=== PATIENT | female | born 1980 | race Caucasian/White ===

== ENCOUNTER → 2016-09-17 | Outpatient (CLI) | payer OTHER ==
[~2016-09-17] MED LIST: AMT25 PO; MCRB100HP PO; NAPR220T40 PO; NORE1TAB50 PO; RIZA10TA21 PO
== END | disposition home or self-care (01) ==
LOC: C.PAPS 10:27
PROVIDERS: ATTEND Obstetrics & Gynecology
DX: Z12.4 Encounter for screening for malignant neoplasm of cervix (principal)

== ENCOUNTER → 2017-10-14 | Outpatient (CLI) | payer OTHER ==
--- NOTE | 2017-10-15 07:49 | MAMMOGRAPHY REPORT ---
BILATERAL DIGITAL DIAGNOSTIC MAMMOGRAM TOMOSYNTHESIS WITH CAD AND TARGETED RIGHT ULTRASOUND: 8 CLINICAL HISTORY: The patient reports a palpable lump and associated pain in the right breast for a f ew months. The lump has not noticeably changed in size since she first felt it. TECHNIQUE: Breast tomosynthesis in addition to standard 2D mammography was performed. Current study was also evaluated with a Computer Aided Detection (CAD) system. Bilateral CC and MLO 2D and tomosyn thesis images were obtained. COMPARISON: Comparison is made to exams dated: 02/14/2010 mammogram and 06/17/2005 mammogram. BREAST COMPOSITION: The tissue of both breasts is extremely dense, which lowers the sensitivity of m ammography. FINDINGS: A triangle marker was placed at the site of the palpable lump in the right lower inner quad rant pointed out by the patient. There are no suspicious masses or other suspicious mammographic abn ormalities noted in this region. The remainder of both breasts are stable compared to the prior exam s, without suspicious masses, calcifications, or areas of architectural distortion noted. Targeted ultrasound was performed of the area of the palpable lump and associated pain pointed out by the patient, in the right breast at approximately 5:00, 3 cm from the nipple. Sonographically luis l tissue is seen in this region, without evidence of a mass or other suspicious sonographic abnormali ty. IMPRESSION: ACR BI-RADS CATEGORY 2: BENIGN, TARGETED ULTRASOUND ACR BI-RADS CATEGORY 2: BENIGN No suspicious mammographic or sonographic abnormality at the site of the palpable right 5:00 breast l ump pointed out by the patient. There is no mammographic or targeted sonographic evidence of maligna ncy. Recommend clinical follow-up for the palpable right breast lump; any decision to biopsy should be based on clinical grounds. Also recommend routine bilateral screening mammograms in one year. The patient has been verbally notified of the results. Approximately 10% of breast cancers are not detected with mammography. A negative mammographic report should not delay biopsy if a clinically suggestive mass is present. Stefany Chavez M.D. /:10/14/2017 11:52:27 Supervisor Transcribing Operators: Shreya FORBES)(Dhiraj), [facility] letter sent: Normal 1/2 BI-RADS Code: ACR BI-RADS Category 2: Benign Ultrasound BI-RADS: ACR BI-RADS Category 2: Benign
== END | disposition home or self-care (01) ==
LOC: C.MAMM 11:18
PROVIDERS: ATTEND Obstetrics & Gynecology
DX: N63.10 Unspecified lump in the right breast, unspecified quadrant (principal)

== ENCOUNTER 2019-11-10 20:55 | Inpatient (IN) ==
[2019-11-10] MEDS ORDERED: ONDANSETRON INJ 2 MG/ML 2 ML VIAL IV STA (21:59)
[2019-11-10] MEDS ORDERED: MoRPHine SULFATE 4 MG/ML 1 ML CARP\\VIAL IV STA (21:59)
--- NOTE | 2019-11-10 22:08 | Emergency Department Note ---
History of Present Illness General Chief complaint: Abdominal Pain Stated complaint: EXTREME ABD AND SIDE PAIN Time Seen by Provider: 11/10/19 21:44 History of Present Illness Maximum Pain Intensity: 10 This is a 39-year-old female presenting to the emergency department for evaluation of left-sided abdominal pain and diarrhea worsening over the past 2 days. She has had intermittent symptoms for the past 2 weeks and evidently had normal outpatient ultrasound of the gallbladder and blood work performed within the past 2 days. She is having intermittent small diarrheal episodes at home, and denies any recent antibiotic use. Her pain initially was diffuse, but now seems more in the left side. She has not had any medication changes. No recent travel. Past medical history does include liver cysts that have been biopsied, and reportedly normal. She has not had any other abdominal procedures. She has been able to eat and drink as normal. She rates her current discomfort a 10/10 and has not taken anything [id number] for pain control. Home Medications Home Medications Medication Instructions Recorded Confirmed Type escitalopram oxalate 10 mg PO DAILY 11/10/19 11/10/19 History famotidine 40 mg PO HS 11/10/19 11/10/19 History fremanezumab-vfrm [Ajovy Syringe] 225 mg SUBCUT MO 11/10/19 11/10/19 History rizatriptan 10 mg PO DIRECTED PRN 11/10/19 11/10/19 History topiramate [Trokendi XR] 50 mg PO DAILY 11/10/19 11/10/19 History valacyclovir 2,000 mg PO Q12H PRN 11/10/19 11/10/19 History Allergies Allergy/AdvReac Type Severity Reaction Status Date / Time azithromycin Allergy Intermediate Rash Verified 11/10/19 22:19 prednisone Allergy Intermediate Rash Verified 11/10/19 22:19 Past Med/Surg History Medical History Horners syndrome (Chronic) Liver cyst Surgical History S/P breast biopsy S/P tooth extraction Social History Preferred Language: [employer] Required: No Current Living Situation: Alone Other Information That Helps Us Care for You: No Feels Safe at Home: Yes Safety Concerns: Feels Safe At This Time Smoking Status: Never smoker Hx Alcohol Use: Yes Hx Substance Use: No Review of Systems A total of 10 systems reviewed and were otherwise negative Physical Exam Vital Signs Vital Signs - 24 hr 11/10/19 20:58 11/10/19 21:43 11/10/19 22:00 Temperature 36.7 C Temperature Source Oral Pulse Rate 91 H 83 Pulse Rate [Apical] 80 Pulse Rate from SpO2 Sensor Respiratory Rate 20 18 18 Respiratory Effort / Characteristics Non-Labored Spontaneous Respiratory Depth Normal Blood Pressure 125/80 108/74 Blood Pressure [Right Arm] 111/71 Blood Pressure Mean 95 87 Blood Pressure Mean [Right Arm] 84 Pulse Oximetry 99 99 Oxygen Delivery Method Room Air Room Air Sepsis Action Taken by Nursing No Action Required 11/10/19 22:06 11/10/19 22:30 11/10/19 23:30 Temperature Temperature Source Pulse Rate 76 62 Pulse Rate [Apical] Pulse Rate from SpO2 Sensor 77 67 Respiratory Rate 16 16 Respiratory Effort / Characteristics Respiratory Depth Blood Pressure 103/74 121/73 Blood Pressure [Right Arm] Blood Pressure Mean 86 82 Blood Pressure Mean [Right Arm] Pulse Oximetry 100 100 100 Oxygen Delivery Method Room Air Sepsis Action Taken by Nursing 11/11/19 00:00 11/11/19 01:00 11/11/19 01:30 Temperature Temperature Source Pulse Rate 66 70 76 Pulse Rate [Apical] Pulse Rate from SpO2 Sensor 64 70 76 Respiratory Rate 17 19 19 Respiratory Effort / Characteristics Respiratory Depth Blood Pressure 128/86 111/66 111/76 Blood Pressure [Right Arm] Blood Pressure Mean 89 79 91 Blood Pressure Mean [Right Arm] Pulse Oximetry 100 100 99 Oxygen Delivery Method Room Air Sepsis Action Taken by Nursing 11/11/19 02:00 11/11/19 02:30 Temperature Temperature Source Pulse Rate 70 72 Pulse Rate [Apical] Pulse Rate from SpO2 Sensor 70 73 Respiratory Rate 15 22 Respiratory Effort / Characteristics Respiratory Depth Blood Pressure 110/77 114/77 Blood Pressure [Right Arm] Blood Pressure Mean 85 84 Blood Pressure Mean [Right Arm] Pulse Oximetry 99 99 Oxygen Delivery Method Sepsis Action Taken by Nursing VITALS: Vitals are noted on the nurse's note and reviewed by myself. Vital signs stable. GENERAL: Well-developed, well-nourished, white female, who is in no acute distress and resting comfortably. Patient is cooperative with the examination. HEAD: Normocephalic atraumatic. MOUTH: Mucous membranes moist. Tonsils are not enlarged. Pharynx without erythema, blood, or exudate. Uvula midline. Airway patent. NECK: Supple without nuchal rigidity. No lymphadenopathy. No thyromegaly. Cervical spine is nontender. HEART: Regular rate and rhythm without murmurs gallops or rubs. LUNGS: Clear to auscultation bilaterally without wheezes, rales or rhonchi. No retractions or accessory muscle use. ABDOMEN: Positive normal bowel sounds x 4. Soft, nontender, without masses or organomegaly. No guarding or rebound tenderness. MUSCULOSKELETAL: No muscle atrophy, erythema, or edema noted. Full range of motion in all extremities. NEURO: Patient was alert and oriented to person place and time. CN II through XII grossly intact. SKIN: The skin was without rashes, erythema, edema, or bruising. Capillary refill less than 2 seconds. Course Administered Medications Potassium Chloride/Sodium Chloride (Normal Saline W/20 Meq Kcl) 20 meq in 1,000 mls @ 100 mls/hr IV .Q10H JESSY Stop: 12/11/19 03:59 Last Admin: 11/11/19 04:18 Dose: 100 mls/hr Documented by: [id number] Tramadol HCl (Ultram) 25 - 50 mg PO Q4H PRN PRN Reason: Pain Stop: 12/11/19 03:35 Last Admin: 11/11/19 03:52 Dose: 50 mg Documented by: [id number] Discontinued Medications Ceftriaxone Sodium (Rocephin) 1,000 mg in 50 mls @ 100 mls/hr IV NOW STA Stop: 11/11/19 01:48 Last Infusion: 11/11/19 02:14 Dose: 0 mls/hr Documented by: [id number] Admin: 11/11/19 01:32 Dose: 100 mls/hr Documented by: [id number] Sodium Chloride (Nss 1000ml) 1,000 mls @ 999 mls/hr IV .Q1H1M STA Stop: 11/11/19 03:25 Last Infusion: 11/11/19 03:35 Dose: 0 mls/hr Documented by: [id number] Admin: 11/11/19 02:29 Dose: 999 mls/hr Documented by: [id number] Ioversol (Optiray 320 100ml) 93 ml IV ONCE PRN PRN Reason: Interaction Checking Stop: 11/15/19 00:22 Last Admin: 11/11/19 00:24 Dose: 93 ml Documented by: [id number] Morphine Sulfate (Morphine Sulfate) 4 mg IV NOW STA Stop: 11/10/19 22:00 Last Admin: 11/10/19 23:07 Dose: 4 mg Documented by: [id number] Morphine Sulfate (Morphine Sulfate) 4 mg IV NOW STA Stop: 11/11/19 00:53 Last Admin: 11/11/19 01:02 Dose: 4 mg Documented by: [id number] Ondansetron HCl (Zofran) 4 mg IV NOW STA Stop: 11/10/19 22:00 Last Admin: 11/10/19 23:07 Dose: 4 mg Documented by: [id number] Tamsulosin HCl (Flomax) 0.4 mg PO NOW STA Stop: 11/11/19 02:06 Last Admin: 11/11/19 02:14 Dose: 0.4 mg Documented by: [id number] Medical Decision Making Differential Diagnosis Differential diagnosis: Etiologies such as biliary colic, cholecystitis, hepatitis, pancreatitis, cardiac disease, pancreatitis, gastritis, peptic ulcer disease, appendicitis, cystitis, diverticulitis, mesenteric ischemia, inflammatory bowel disease, ileus, bowel obstruction, testicular/adnexal torsion, aortic pathology, shingles, as well as others were considered Laboratory Data Result diagrams: 11/10/19 21:50 11/10/19 21:50 Lab Results 11/10/19 11/10/19 11/10/19 Range/Units 21:45 21:45 21:50 WBC 6.80 (4.8-10.8) K/uL RBC 4.46 (4.2-5.4) M/uL Hgb 11.2 L (12.0-16.0) g/dL Hct 35.3 L (37-47) % MCV 79.1 L (80-100) fL MCH 25.1 (25-34) pg MCHC 31.7 L (32-36) g/dL RDW Std Deviation 44.6 (36.4-46.3) fL RDW Coeff of Deanna 15.4 H (11.5-14.5) % Plt Count 214 (130-400) K/uL MPV 9.7 (7.4-10.4) fL Immature Gran % (Auto) 0.1 % Neut % (Auto) 72.4 % Lymph % (Auto) 19.6 % [place] % (Auto) 7.2 % Eos % (Auto) 0.3 % Baso % (Auto) 0.4 % Immature Gran # (Auto) 0.01 (0.00-0.02) K/uL Neut # (Auto) 4.92 (1.4-6.5) K/uL Lymph # (Auto) 1.33 (1.2-3.4) K/uL [place] # (Auto) 0.49 (0.11-0.59) K/uL Eos # (Auto) 0.02 (0-0.5) K/uL Baso # (Auto) 0.03 (0-0.2) K/uL ESR (0-21) mm/hr Sodium (136-145) mmol/L Potassium (3.5-5.1) mmol/L Chloride (98-107) mmol/L Carbon Dioxide (21-32) mmol/L Anion Gap (3-11) BUN (7-18) mg/dl Creatinine (0.6-1.2) mg/dl Est Cr Clr Drug Dosing ml/min Est GFR ( Amer) Est GFR (Non-Af Amer) BUN/Creatinine Ratio (10-20) Glucose (70-99) mg/dl Calcium (8.5-10.1) mg/dl Magnesium (1.8-2.4) mg/dl Total Bilirubin (0.2-1) mg/dl AST (15-37) U/L ALT (12-78) U/L Alkaline Phosphatase (45-117) U/L C-Reactive Protein (0-0.29) mg/dl Total Protein (6.4-8.2) gm/dl Albumin (3.4-5.0) gm/dl Globulin (2.5-4.0) gm/dl Albumin/Globulin Ratio (0.9-2) Lipase (73-393) U/L TSH (0.300-4.500) uIu/ml Urine Color Dark Yellow Urine Appearance Turbid A (Clear) Urine pH 7.5 (4.5-7.5) Ur Specific [place] 1.013 (1.000-1.030) Urine Protein Negative (Negative) Urine Glucose (UA) Negative (Negative) Urine Ketones Negative (Negative) Urine Blood Trace H (Negative) Urine Nitrite Positive A (Negative) Urine Bilirubin Negative (Negative) Urine Urobilinogen Negative (Negative) Ur Leukocyte Esterase 2+ H (Negative) Urine WBC (Auto) 10-30 H (0-5) /hpf Urine RBC (Auto) 0-4 (0-4) /hpf U Hyaline Cast (Auto) 1-5 (0-5) /lpf U Epithel Cells (Auto) >30 H (0-5) /lpf Urine Bacteria (Auto) 1+ H (Negative) Urine Test Negative (Negative) 11/10/19 11/10/19 Range/Units 21:50 21:50 WBC (4.8-10.8) K/uL RBC (4.2-5.4) M/uL Hgb (12.0-16.0) g/dL Hct (37-47) % MCV (80-100) fL MCH (25-34) pg MCHC (32-36) g/dL RDW Std Deviation (36.4-46.3) fL RDW Coeff of Deanna (11.5-14.5) % Plt Count (130-400) K/uL MPV (7.4-10.4) fL Immature Gran % (Auto) % Neut % (Auto) % Lymph % (Auto) % [place] % (Auto) % Eos % (Auto) % Baso % (Auto) % Immature Gran # (Auto) (0.00-0.02) K/uL Neut # (Auto) (1.4-6.5) K/uL Lymph # (Auto) (1.2-3.4) K/uL [place] # (Auto) (0.11-0.59) K/uL Eos # (Auto) (0-0.5) K/uL Baso # (Auto) (0-0.2) K/uL ESR 8 (0-21) mm/hr Sodium 135 L (136-145) mmol/L Potassium 3.5 (3.5-5.1) mmol/L Chloride 107 (98-107) mmol/L Carbon Dioxide 23 (21-32) mmol/L Anion Gap 6.0 (3-11) BUN 13 (7-18) mg/dl Creatinine 1.21 H (0.6-1.2) mg/dl Est Cr Clr Drug Dosing 58.7 ml/min Est GFR ( Amer) 64.4 Est GFR (Non-Af Amer) 55.5 BUN/Creatinine Ratio 11.0 (10-20) Glucose 134 H (70-99) mg/dl Calcium 9.6 (8.5-10.1) mg/dl Magnesium 2.1 (1.8-2.4) mg/dl Total Bilirubin 0.3 (0.2-1) mg/dl AST 12 L (15-37) U/L ALT 20 (12-78) U/L Alkaline Phosphatase 57 (45-117) U/L C-Reactive Protein < 0.29 (0-0.29) mg/dl Total Protein 7.3 (6.4-8.2) gm/dl Albumin 3.8 (3.4-5.0) gm/dl Globulin 3.5 (2.5-4.0) gm/dl Albumin/Globulin Ratio 1.1 (0.9-2) Lipase 139 (73-393) U/L TSH 3.370 (0.300-4.500) uIu/ml Urine Color Urine Appearance (Clear) Urine pH (4.5-7.5) Ur Specific [place] (1.000-1.030) Urine Protein (Negative) Urine Glucose (UA) (Negative) Urine Ketones (Negative) Urine Blood (Negative) Urine Nitrite (Negative) Urine Bilirubin (Negative) Urine Urobilinogen (Negative) Ur Leukocyte Esterase (Negative) Urine WBC (Auto) (0-5) /hpf Urine RBC (Auto) (0-4) /hpf U Hyaline Cast (Auto) (0-5) /lpf U Epithel Cells (Auto) (0-5) /lpf Urine Bacteria (Auto) (Negative) Urine Test (Negative) Imaging Data Radiologist's Impression: Preliminary Findings Only See Final Report For Complete Findings CT ABDOMEN & PELVIS With Contrast: Mild sternal pectus excavatum deformity. Multiple right greater than left hepatic cysts measuring up to 5.1 cm. Incompletely characterized 1.1 cm mid splenic low-density. Consider cyst versus hemangioma. Punctate right kidney upper pole nonobstructive stone. Right renal cortical cysts. Delayed left nephrogram with left-sided hydronephrosis, hydroureter, perinephric fat stranding. Hydroureter extends down to the level of the pelvis with a left UVJ 3.5 mm stone. 1.4 cm right ovarian follicle. Small amount of fluid in the fundal portion of the endometrium. Sacral Tarlov cysts. Spina bifida occulta at L5. MDM Narrative Physical exam and history were performed. Nursing notes, EMR, and Medication L ist were personally reviewed. Patient appears to have abdominal discomfort that is significantly worse the past 2 days despite having symptoms for 2 weeks. On examination the patient does not appear toxic. IV access was established and labs were obtained. She was given IV morphine and IV Zofran for comfort. Patient was prepped for CT with IV and oral contrast. The patient's blood work is as above and was reviewed. She does not have a significantly elevated white blood cell count. She is minimally anemic at 11.2. Lipase and transaminases are not diagnostic. TSH shows euthyroid state. Glucose is 134. Creatinine is minimally elevated at 1.21. Urine is bacteria and esterase concerning for infection. CT scan was reviewed by myself and radiology, and does show a distal 3.5 mm uret eral calculi, which certainly would correlate with her symptoms. There does appear to be stranding around the ureter as well as hydronephrosis. The case was discussed with my attending physician, Dr. Baez, who remained involved in care decision making. Due to the patient's pain and stone that eleuterio ears to be infected we have concern for sending her home. She was empirically started on Rocephin IV and the case was discussed with the hospitalist. Please see their dictation for further patient course, plan, and disposition. The chart was completed utilizing [employer] Voice Recognition Software. Grammatical errors, random word insertions, pronoun errors, and incomplete sentences are an occasional consequence of this system due to software limitations, ambient noise, and hardware issues. Any formal questions or concerns about the content, text, or information contained within the body of this dictation should be directly addressed to the provider for clarification. . Impression & Plan Left ureteral calculus, UTI (urinary tract infection) Discharge Plan Visit Data *Final* Discharge Date/Time: 11/11/19 03:16 Chief Complaint: Abdominal Pain Stated Complaint: EXTREME ABD AND SIDE PAIN ED Provider: William Baez ED Midlevel Provider: Antelmo Slater Discharge Problem: Left ureteral calculus, UTI (urinary tract infection) Patient Disposition: Admitted As Inpatient Discharge Instructions Interventions: ED Discharge Assessment Last Done: 11/11/19 03:16
[2019-11-10 22:18] LABS: Appearance Urine Turbid (Clear); Bacteria Urine Automated 1+ (Negative); Bilirubin Urine Negative (Negative); Blood Urine Trace (Negative); Color Urine Dark Yellow; Epithelial Cell Urine Auto >30 /lpf (0-5); Glucose Urine UA Negative (Negative); Ketones Urine Negative (Negative); Leukocyte Esterase Urine 2+ (Negative); Nitrite Urine Positive (Negative); Protein Urine Negative (Negative); RBC Urine Automated 0-4 /hpf (0-4); Specific Gravity Urine 1.013 (1.000-1.030); Urobilinogen Urine Negative (Negative); pH Urine 7.5 (4.5-7.5)
[2019-11-10 22:19] LABS: Pregnancy Test, Urine Negative (Negative)
[2019-11-10 22:19] LABS: Basophils # (auto) 0.03 K/uL (0-0.2); Basophils % (auto) 0.4 %; Eosinophils # (auto) 0.02 K/uL (0-0.5); Eosinophils % (auto) 0.3 %; Hematocrit (blood only) 35.3 % (37-47); Hemoglobin 11.2 g/dL (12.0-16.0); Immature Granulocytes # (auto) 0.01 K/uL (0.00-0.02); Immature Granulocytes % (auto) 0.1 %; Lymphocytes # (auto) 1.33 K/uL (1.2-3.4); Lymphocytes % (auto) 19.6 %; Mean Corpuscular Hemoglobin 25.1 pg (25-34); Mean Corpuscular Hgb Conc 31.7 g/dL (32-36); Mean Corpuscular Volume 79.1 fL (80-100); Mean Platelet Volume 9.7 fL (7.4-10.4); Monocytes # (auto) 0.49 K/uL (0.11-0.59); Monocytes % (auto) 7.2 %; Neutrophils # (auto) 4.92 K/uL (1.4-6.5); Neutrophils % (auto) 72.4 %; Platelet Count 214 K/uL (130-400); RDW Coefficient of Variation 15.4 % (11.5-14.5); RDW Standard Deviation 44.6 fL (36.4-46.3); Red Blood Count 4.46 M/uL (4.2-5.4)
[2019-11-10 22:43] LABS: Alanine Aminotransferase 20 U/L (12-78); Albumin Level 3.8 gm/dl (3.4-5.0); Aspartate Aminotransferase 12 U/L (15-37); Blood Urea Nitrogen 13 mg/dl (7-18); C Reactive Protein < 0.29 mg/dl (0-0.29); Calcium 9.6 mg/dl (8.5-10.1); Carbon Dioxide 23 mmol/L (21-32); Chloride 107 mmol/L (98-107); Creatinine Clr Calc Pharmacy 58.7 ml/min; Est GFR (African American) 64.4; Est GFR (Non-African American) 55.5; Glucose 134 mg/dl (70-99); Lipase 139 U/L (73-393); Magnesium 2.1 mg/dl (1.8-2.4); Potassium 3.5 mmol/L (3.5-5.1); Sodium 135 mmol/L (136-145)
[2019-11-10 22:51] LABS: Albumin Globulin Ratio 1.1 (0.9-2); Alkaline Phosphatase 57 U/L (45-117); Bilirubin,Total 0.3 mg/dl (0.2-1); Globulin 3.5 gm/dl (2.5-4.0); Total Protein 7.3 gm/dl (6.4-8.2)
[2019-11-11] MEDS ORDERED: IOVERSOL 100ml IV PRN (00:23)
[2019-11-11] MEDS ORDERED: MoRPHine SULFATE 4 MG/ML 1 ML CARP\\VIAL IV STA (00:52)
[2019-11-11] MEDS ORDERED: cefTRIAXone SODIUM 1,000 MG/50 ML BAG IV STA (01:19)
[2019-11-11] MEDS ORDERED: TAMSULOSIN HCL 0.4 MG CAP PO STA (02:05)
[2019-11-11] MEDS ORDERED: SODIUM CHLORIDE 0.9% 1000ML 1,000 ML IV STA (02:25)
--- NOTE | 2019-11-11 02:53 | History & Physical Report ---
Date of Service November 11, 2019 Assessment & Plan (1) Complicated UTI (urinary tract infection): Secondary to recurrent obstructive uropathy (? Topamax Rx for migraine predisposing to kidney stone) No sepsis for now Diarrhea possibly viral rule out C. difficile ARF secondary to illness chronic anemia, hemoglobin at baseline Hyperglycemia rule out DM GMF Follow urine cultures, IV Ceftriaxone Flomax trial, strain urine Urology consult if without improvement in a.m. Patient will touch base with her neurologist regarding possible alternative to Topamax given hx recurrent kidney stones. Monitor creatinine response to IVF Stool C. difficile Check hemoglobin A1c DVT prophylaxis. SCDs Full code Text document was generated using [employer] voice recognition software. It may contain grammatical or spelling errors. Kindly contact undersigned for clarification of any documentation item in question. History of Present Illness Chief Complaint: Flank pain, diarrhea Primary Care Provider: Lida Aguilar DO History obtained from patient and records. Medical history significant for urolithiasis, migraine, Martha syndrome as per records, history liver cysts, chronic anemia (baseline hemoglobin of 11). 2 weeks history of achy abdominal pain initially epigastric later going to the left side. Watery loose stools without nausea and emesis. No fever, no chills. No known sick contacts, recent travel, new medications. No hematuria. Poor appetite. No chest pain, no S OB. Patient seen at PCP's office last week. Epigastric discomfort attributed to gastroenteritis. 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 Urinalysis was negative for infection. Pepcid Rx without any effect as per patient. Patient consulted ER for worsening symptoms. Some blood noted on wiping her "raw" bottom on one occasion as per patient. Patient given IV Ceftriaxone at the ER. 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 Allergies Allergy/AdvReac Type Severity Reaction Status Date / Time azithromycin Allergy Intermediate Rash Verified 11/10/19 22:19 prednisone Allergy Intermediate Rash Verified 11/10/19 22:19 Home Medications Home Medications Medication Instructions Recorded Confirmed Type escitalopram oxalate 10 mg PO DAILY 11/10/19 11/10/19 History famotidine 40 mg PO HS 11/10/19 11/10/19 History fremanezumab-vfrm [Ajovy Syringe] 225 mg SUBCUT MO 11/10/19 11/10/19 History rizatriptan 10 mg PO DIRECTED PRN 11/10/19 11/10/19 History topiramate [Trokendi XR] 50 mg PO DAILY 11/10/19 11/10/19 History valacyclovir 2,000 mg PO Q12H PRN 11/10/19 11/10/19 History Past Med/Surg History Medical History Horners syndrome (Chronic) Liver cyst Surgical History S/P breast biopsy S/P tooth extraction Social History Preferred Language: Yemeni 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: No Current Living Situation: Alone Other Information That Helps Us Care for You: No Feels Safe at Home: Yes Safety Concerns: Feels Safe At This Time Smoking Status: Never smoker Hx Alcohol Use: Yes Hx Substance Use: No Review of Systems Review of Systems: As per HPI, all 10 systems reviewed, all other ROS negative Physical Exam Physical Exam: GENERAL: Slightly anxious, slightly uncomfortable, no respiratory distress SKIN: Pallor , warm HEENT: Pale palpebral conjunctivae, no ptosis, dry buccal mucosa NECK : Supple, no tenderness CHEST : CTA, no tenderness HEART : RRR, systolic murmur BACK : Minimal left flank tenderness ABDOMEN: Some distention, nontender EXTREMITIES : No LE swelling/tenderness, no other conspicuous deformities noted NEUROLOGIC : Coherent, no facial asymmetry, no other gross focality Results & Data Results & Data ([facility]) Vital Signs (Past 12 Hours) Vital Signs Temp Pulse Pulse Resp BP BP Pulse Ox 11/11/19 01:30 76 19 111/76 99 11/11/19 01:00 70 19 111/66 100 11/11/19 00:00 66 17 128/86 100 11/10/19 23:30 62 16 121/73 100 11/10/19 22:30 76 16 103/74 100 11/10/19 22:06 100 11/10/19 22:00 83 18 108/74 11/10/19 21:43 80 18 111/71 99 11/10/19 20:58 36.7 C 91 H 20 125/80 99 Laboratory Results Laboratory Results WBC 6.80 K/uL (4.8-10.8) 11/10/19 21:50 RBC 4.46 M/uL (4.2-5.4) 11/10/19 21:50 Hgb 11.2 g/dL (12.0-16.0) L 11/10/19 21:50 Hct 35.3 % (37-47) L 11/10/19 21:50 MCV 79.1 fL (80-100) L 11/10/19 21:50 MCH 25.1 pg (25-34) 11/10/19 21:50 MCHC 31.7 g/dL (32-36) L 11/10/19 21:50 RDW Std Deviation 44.6 fL (36.4-46.3) 11/10/19 21:50 RDW Coeff of Deanna 15.4 % (11.5-14.5) H 11/10/19 21:50 Plt Count 214 K/uL (130-400) 11/10/19 21:50 MPV 9.7 fL (7.4-10.4) 11/10/19 21:50 Immature Gran % (Auto) 0.1 % 11/10/19 21:50 Neut % (Auto) 72.4 % 11/10/19 21:50 Lymph % (Auto) 19.6 % 11/10/19 21:50 [place] % (Auto) 7.2 % 11/10/19 21:50 Eos % (Auto) 0.3 % 11/10/19 21:50 Baso % (Auto) 0.4 % 11/10/19 21:50 Immature Gran # (Auto) 0.01 K/uL (0.00-0.02) 11/10/19 21:50 Neut # (Auto) 4.92 K/uL (1.4-6.5) 11/10/19 21:50 Lymph # (Auto) 1.33 K/uL (1.2-3.4) 11/10/19 21:50 [place] # (Auto) 0.49 K/uL (0.11-0.59) 11/10/19 21:50 Eos # (Auto) 0.02 K/uL (0-0.5) 11/10/19 21:50 Baso # (Auto) 0.03 K/uL (0-0.2) 11/10/19 21:50 ESR 8 mm/hr (0-21) 11/10/19 21:50 Sodium 135 mmol/L (136-145) L 11/10/19 21:50 Potassium 3.5 mmol/L (3.5-5.1) 11/10/19 21:50 Chloride 107 mmol/L (98-107) 11/10/19 21:50 Carbon Dioxide 23 mmol/L (21-32) 11/10/19 21:50 Anion Gap 6.0 (3-11) 11/10/19 21:50 BUN 13 mg/dl (7-18) 11/10/19 21:50 Creatinine 1.21 mg/dl (0.6-1.2) H 11/10/19 21:50 Est Cr Clr Drug Dosing 58.7 ml/min 11/10/19 21:50 Est GFR ( Amer) 64.4 11/10/19 21:50 Est GFR (Non-Af Amer) 55.5 11/10/19 21:50 BUN/Creatinine Ratio 11.0 (10-20) 11/10/19 21:50 Glucose 134 mg/dl (70-99) H 11/10/19 21:50 Calcium 9.6 mg/dl (8.5-10.1) 11/10/19 21:50 Magnesium 2.1 mg/dl (1.8-2.4) 11/10/19 21:50 Total Bilirubin 0.3 mg/dl (0.2-1) 11/10/19 21:50 AST 12 U/L (15-37) L 11/10/19 21:50 ALT 20 U/L (12-78) 11/10/19 21:50 Alkaline Phosphatase 57 U/L (45-117) 11/10/19 21:50 C-Reactive Protein < 0.29 mg/dl (0-0.29) 11/10/19 21:50 Total Protein 7.3 gm/dl (6.4-8.2) 11/10/19 21:50 Albumin 3.8 gm/dl (3.4-5.0) 11/10/19 21:50 Globulin 3.5 gm/dl (2.5-4.0) 11/10/19 21:50 Albumin/Globulin Ratio 1.1 (0.9-2) 11/10/19 21:50 Lipase 139 U/L (73-393) 11/10/19 21:50 TSH 3.370 uIu/ml (0.300-4.500) 11/10/19 21:50 Urine Color Dark Yellow 11/10/19 21:45 Urine Appearance Turbid (Clear) A 11/10/19 21:45 Urine pH 7.5 (4.5-7.5) 11/10/19 21:45 Ur Specific [place] 1.013 (1.000-1.030) 11/10/19 21:45 Urine Protein Negative (Negative) 11/10/19 21:45 Urine Glucose (UA) Negative (Negative) 11/10/19 21:45 Urine Ketones Negative (Negative) 11/10/19 21:45 Urine Blood Trace (Negative) H 11/10/19 21:45 Urine Nitrite Positive (Negative) A 11/10/19 21:45 Urine Bilirubin Negative (Negative) 11/10/19 21:45 Urine Urobilinogen Negative (Negative) 11/10/19 21:45 Ur Leukocyte Esterase 2+ (Negative) H 11/10/19 21:45 Urine WBC (Auto) 10-30 /hpf (0-5) H 11/10/19 21:45 Urine RBC (Auto) 0-4 /hpf (0-4) 11/10/19 21:45 U Hyaline Cast (Auto) 1-5 /lpf (0-5) 11/10/19 21:45 U Epithel Cells (Auto) >30 /lpf (0-5) H 11/10/19 21:45 Urine Bacteria (Auto) 1+ (Negative) H 11/10/19 21:45 Urine Test Negative (Negative) 11/10/19 21:[address] abdomen pelvis initial read : delayed left nephrogram with left-sided hydro nephrosis, hydroureter, perinephric fat stranding. Hydroureter extends down to the level of pelvis with a left UVJ 3.5 mm stone. Chest x-ray as per my interpretation no infiltrate/congestion
[2019-11-11] MEDS ORDERED: PROMETHAZINE HCL 12.5 MG in SODIUM CHLORIDE 0.9% 50 ML IV PRN (03:36)
[2019-11-11] MEDS ORDERED: HYDROmorphone INJ 0.5 MG/0.5 ML SYR IV PRN (03:36)
[2019-11-11] MEDS ORDERED: ACETAMINOPHEN 325 MG TAB PO PRN (03:36)
[2019-11-11] MEDS ORDERED: LORazepam 0.25 MG/0.5 ML VIAL IV PRN (03:36)
[2019-11-11] MEDS: TRAMADOL HCL 50 MG TABLET PO PRN ×3 (03:52→18:12)
[2019-11-11] MEDS: NSS + 20MEQ KCL 20 MEQ/1,000 ML BAG IV SCH ×2 (04:18→15:27)
[2019-11-11 05:52] LABS: Basophils # (auto) 0.01 K/uL (0-0.2); Basophils % (auto) 0.2 %; Eosinophils # (auto) 0.01 K/uL (0-0.5); Eosinophils % (auto) 0.2 %; Hemoglobin 10.1 g/dL (12.0-16.0); Immature Granulocytes # (auto) 0.01 K/uL (0.00-0.02); Immature Granulocytes % (auto) 0.2 %; Lymphocytes # (auto) 0.83 K/uL (1.2-3.4); Lymphocytes % (auto) 13.4 %; Mean Corpuscular Hemoglobin 25.3 pg (25-34); Mean Corpuscular Hgb Conc 31.6 g/dL (32-36); Mean Platelet Volume 9.5 fL (7.4-10.4); Monocytes # (auto) 0.46 K/uL (0.11-0.59); Monocytes % (auto) 7.4 %; Neutrophils # (auto) 4.88 K/uL (1.4-6.5); Neutrophils % (auto) 78.6 %; Platelet Count 195 K/uL (130-400); RDW Coefficient of Variation 15.5 % (11.5-14.5); RDW Standard Deviation 45.8 fL (36.4-46.3)
[2019-11-11 06:19] LABS: BUN Creatinine Ratio 10.2 (10-20); Calcium 8.1 mg/dl (8.5-10.1); Creatinine Clr Calc Pharmacy 78.6 ml/min; Est GFR (African American) 90.8; Est GFR (Non-African American) 78.4; Potassium 3.8 mmol/L (3.5-5.1)
--- NOTE | 2019-11-11 07:14 | CT Scan Report ---
CT SCAN OF THE ABDOMEN AND PELVIS WITH IV CONTRAST CLINICAL HISTORY: Left-sided abdominal pain. COMPARISON STUDY: Abdominal CT dated 09/06/2014. TECHNIQUE: Following the IV administration of 93 cc of Optiray 320, CT scan of the abdomen and pelvi s is performed from the lung bases to the proximal femora. Images are reviewed in the axial, sagittal , and coronal planes. IV contrast was administered without complication. Oral contrast was utilized. A dose lowering technique was utilized adhering to the principles of ALARA. CT DOSE: 318.38 mGy.cm FINDINGS: Lung bases: The heart is normal in size and without pericardial effusion. The lung bases are clear. Liver: The contrast-enhanced liver is normal in size, contour, and attenuation. There is no intrahepa tic biliary ductal dilatation. The hepatic veins and portal veins are patent. Numerous hepatic cysts measure up to 4.7 cm. Additional subcentimeter hepatic hypodensities also likely represent cysts but are too small for definitive characterization. Hepatic cysts have increased from 2015. Gallbladder: Unremarkable. Spleen: Normal in size and attenuation. A 1.4 cm splenic hypodensity seen on image #118 is pathologic ally indeterminant but of doubtful significance. This was also seen in 2015. Pancreas: Unremarkable. Adrenal glands: Unremarkable. Kidneys: The contrast enhanced kidneys are normal in size. There is a 6 mm obstructing calculus at th e left vesicoureteral junction seen on image #401. This causes moderate left hydroureteronephrosis. T here is associated left-sided perinephric and periureteric stranding. There is slight heterogeneous e nhancement of the left kidney. No additional left renal calculi are clearly identified. There is a 3 mm nonobstructing calculus in the upper pole of the right kidney. No right-sided hydronephrosis is se en. Scattered subcentimeter cortical hypodensities likely represent cysts but are too small for defin itive characterization. Abdominal vasculature: The abdominal aorta is normal in course and caliber. Bowel: There is no bowel obstruction. Enteric contrast reaches the distal small bowel. The appendix i s well-visualized and normal. Peritoneum: There is no intraperitoneal free air or abdominal ascites. Lymphadenopathy: None. Pelvic viscera: The bladder, uterus, and adnexa are normal as visualized. There are bilateral ovarian follicles. An involuting follicle is noted on the right. Skeletal structures: No lytic or blastic lesions are seen. Tarlov cysts are noted in the sacrum. IMPRESSION: 1. There is a 6 mm obstructing calculus at the left vesicoureteral junction. This causes moderate lef t hydroureteronephrosis. 2. No additional left renal calculi are identified on this contrast-enhanced examination. A small non obstructing calculus is noted in the upper pole of the right kidney. 3. There is heterogeneous enhancement of the left kidney, likely related to obstruction/hydronephrosi s. Correlation with clinical findings and urinalysis will be required. 4. There are numerous hepatic cysts. These have increased from the 2015 examination. 5. Additional findings as above. ACT 112: Negative or not required by law. Electronically signed by: Matthias Mann M.D. 11/11/2019 7:13 AM
[2019-11-11 07:19] LABS: Albumin Level 3.2 gm/dl (3.4-5.0)
--- NOTE | 2019-11-11 07:22 | XRay Report ---
XR chest 1V portable CLINICAL HISTORY: renal failure COMPARISON STUDY: No previous studies for comparison. FINDINGS: The cardiac and mediastinal contours are normal. There is no evidence of focal pulmonary co nsolidation. There is no evidence of failure. No pleural effusions are visualized.[ IMPRESSION: No active disease in the chest. ACT 112: Negative or not required by law. Electronically signed by: Alan Saxena M.D. 11/11/2019 7:20 AM
[2019-11-11 08:08] LABS: Estimated Average Glucose 120 mg/dl; Hemoglobin A1C 5.8 % (4.5-5.6)
[2019-11-11] MEDS: ESCITALOPRAM OXALATE 10 MG TAB PO SCH (10:06)
[2019-11-11] MEDS: TOPIRAMATE XR PO SCH (10:07)
--- NOTE | 2019-11-11 14:59 | Urology Consultation ---
Date of Consultation November 11, 2019 Assessment & Plan (1) Left ureteral calculus: Discussed options for conservative measure and maximum expulsion medical therapy and symptom controlled. Discussed ESWL. Discussed Ureteroscopy with extraction and/or laser lithotripsy. Risks and benefits were discussed. Stone free rates were also discussed as well as possibility of multiple procedures. Ureteral stents were discussed as well as post-operative issues and pain management. All questions were answered. Patient has a 6 mm distal UVJ stone with significant discomfort and ill feelings. Patient is currently resting comfortably and has not had a severe episode. Does not feel like she is passed it. In the past she has passed stones without major issue. Discussed different options and patient is electing to continue with supportive care hydration and expulsion therapy in an attempt to pass the stone. If suddenly worsens, developed a fever, or had major other changes patient would be a candidate for stent placement to relieve obstruction. For now we will hold off and continue to monitor and continue with supportive care. Patient's histories were all reviewed and summarized above. Patient's lab and imaging was all reviewed interpreted by myself. We will continue to follow closely to determine if patient will need intervention however at this point can have a diet with plans for likely n.p.o. at midnight to reassess in the morning (2) UTI (urinary tract infection): History of Present Illness Attending Physician: Garth Brink MD History of Present Illness New consultation for patient with stone, discomfort, obstruction, and ill feelings. Patient developed sudden onset of pain into flank going down and radiating into groin and back in waves comes and goes. Can be severe at times. Discussed and reviewed patient's family history for any history of stone disease. Her father and brother have both have stones in the past. Patient has previously passed stones on her own. Has never needed intervention. Did not have considerable pain or major issues such as the severity that it is this time. Patient's imaging shows a distal UVJ stone approximately 6 mm. Also, discussed patient's medical surgery history especially related to any history of urinary issues or stone disease. Patient was admitted and is undergoing observation. Allergies Allergy/AdvReac Type Severity Reaction Status Date / Time azithromycin Allergy Intermediate Rash Verified 11/10/19 22:19 prednisone Allergy Intermediate Rash Verified 11/10/19 22:19 Home Medications Home Medications Medication Instructions Recorded Confirmed Type escitalopram oxalate 10 mg PO DAILY 11/10/19 11/10/19 History famotidine 40 mg PO HS 11/10/19 11/10/19 History fremanezumab-vfrm [Ajovy Syringe] 225 mg SUBCUT MO 11/10/19 11/10/19 History rizatriptan 10 mg PO DIRECTED PRN 11/10/19 11/10/19 History topiramate [Trokendi XR] 50 mg PO DAILY 11/10/19 11/10/19 History valacyclovir 2,000 mg PO Q12H PRN 11/10/19 11/10/19 History Patient History Medical History Horners syndrome (Chronic) Liver cyst Surgical History S/P breast biopsy S/P tooth extraction Family History Mother Cancer Family/Other Hypertension Diabetes Nephrolithiasis Hypercholesteremia Father Colonic polyp Social History 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 Patient is well nourished and well kept. HEENT: Normocephalic Atraumatic. Inspection normal. Cranial Nerves 2-12 G rossly intact. Nares are clear. Neck is supple. Normal inspection of face. Normal inspection of neck. Neurologic: No deficits on inspection. Baseline for motor function and sensory. Psychologic: Normal affect. Respiratory: Nonlabored. No use of accessory muscles. No tachypnea or dyspnea. Cardiovascular: No tachycardia Skin: Brogan and Dry. No rashes or visible lesions. Extremities: Moving without issues. No motor deficits on inspection Lymphatics: No edema Abdomen: Soft Non-distended. No acites. No rebound or guarding. Results & Data Vital Signs (Past 12 Hours) Vital Signs Temp Pulse Pulse Pulse Resp BP BP 11/11/19 07:04 36.6 C 72 16 100/64 11/11/19 03:20 36.7 C 69 16 117/78 11/11/19 03:00 66 21 115/78 Pulse Ox 11/11/19 07:04 96 11/11/19 03:20 99 11/11/19 03:00 100 PG Care Time/CCT Total # of Minutes Spent Total Time Spent with Patient: Total time spent is greater than 50% in coordination of care (as documented) at patient's floor/unit and/or counseling patient: Coding Level of Care Code 49607 Inpt Consult Level 5 Diagnoses Left ureteral calculus N20.1 UTI (urinary tract infection) N39.0
--- NOTE | 2019-11-11 17:00 | Hospitalist Progress Note ---
Date of Service November 11, 2019 Assessment & Plan (1) Left ureteral calculus: Left ureteral calculus Obstructive uropathy --CT ABD:There is a 6 mm obstructing calculus at the left vesicoureteral junction. This causes moderate left hydroureteronephrosis. No additional left renal calculi are identified on this contrast-enhanced examination. A small nonobstructing calculus is noted in the upper pole of the right kidney. There is heterogeneous enhancement of the left kidney, likely related to obstruction/hydronephrosis. Correlation with clinical findings and urinalysis will be required. There are numerous hepatic cysts. These have increased from the 2015 examination. --? 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 DVT Px: SCDs Code Status Full code Admission and Anticipated Discharge Date Admission Date: November 11, 2019 Subjective Patient is seen and examined at bedside States having mild left flank, groin pain Denies any hematuria, dysuria Had nausea earlier today which improved Also denies any chest pain, shortness of breath, dizziness, vomiting Offers no other complaints Review of Systems Review of Systems: All systems reviewed & are unremarkable except as noted in HPI & below Physical Exam Physical Exam: Physical Exam: Vitals signs as noted above General Appearance:Thin, no apparent distress Head: normocephalic, Atraumatic Eyes: normal inspection, EOMI Neck: supple, Trachea midline Respiratory/Chest: Normal breath sounds, CTA, No accessory muscle use Cardiovascular: S1, S2, No murmur Abdomen/GI:Soft, Mild left flank/groin tender, Bowel sounds present Extremities/Musculoskelatal:normal inspection, no edema Neurologic/Psych:AAOX3, grossly no focal neurological deficits Skin: normal color, warm Results & Data Results & [facility] ([facility]) Vital Signs (Past 12 Hours) Vital Signs Temp Pulse Resp BP Pulse Ox 11/11/19 15:30 36.5 C 73 20 99/65 L 100 11/11/19 07:04 36.6 C 72 16 100/64 96 Laboratory Results Short CBC 11/10/19 11/11/19 Range/Units 21:50 05:27 WBC 6.80 6.20 (4.8-10.8) K/uL Hgb 11.2 L 10.1 L (12.0-16.0) g/dL Hct 35.3 L 32.0 L (37-47) % Plt Count 214 195 (130-400) K/uL BMP 11/10/19 11/11/19 21:50 05:27 Sodium 135 L 139 Potassium 3.5 3.8 Chloride 107 112 H Carbon Dioxide 23 22 BUN 13 9 Creatinine 1.21 H 0.91 D Glucose 134 H 116 H Calcium 9.6 8.1 L D Liver Function 11/10/19 11/11/19 Range/Units 21:50 05:27 Total Bilirubin 0.3 (0.2-1) mg/dl AST 12 L (15-37) U/L ALT 20 (12-78) U/L Alkaline Phosphatase 57 (45-117) U/L Albumin 3.8 3.2 L (3.4-5.0) gm/dl Urine 11/10/19 Range/Units 21:45 Urine Color Dark Yellow Urine Appearance Turbid A (Clear) Urine pH 7.5 (4.5-7.5) Ur Specific [place] 1.013 (1.000-1.030) Urine Protein Negative (Negative) Urine Glucose (UA) Negative (Negative)
[2019-11-11] MEDS ORDERED: RIZATRIPTAN BENZOATE 10 MG TAB PO STA (23:55)
[2019-11-12] MEDS ORDERED: cefTRIAXone SODIUM 1,000 MG in DEXTROSE 5% 50 ML IV SCH (01:00)
[2019-11-12] MEDS ORDERED: RIZATRIPTAN BENZOATE 10 MG TAB PO STA (06:18)
[2019-11-12 06:26] LABS: Hematocrit (blood only) 32.7 % (37-47); Hemoglobin 10.3 g/dL (12.0-16.0); Mean Corpuscular Hemoglobin 25.6 pg (25-34); Mean Corpuscular Hgb Conc 31.5 g/dL (32-36); Mean Corpuscular Volume 81.1 fL (80-100); Mean Platelet Volume 9.2 fL (7.4-10.4); Platelet Count 172 K/uL (130-400); RDW Coefficient of Variation 15.6 % (11.5-14.5); RDW Standard Deviation 46.4 fL (36.4-46.3); Red Blood Count 4.03 M/uL (4.2-5.4); White Blood Count 4.64 K/uL (4.8-10.8)
[2019-11-12] MEDS ORDERED: SUMAtriptan succinate 6 MG/0.5 ML VIAL SQ STA (06:34)
[2019-11-12 06:53] LABS: BUN Creatinine Ratio 11.1 (10-20); Calcium 8.7 mg/dl (8.5-10.1); Creatinine Clr Calc Pharmacy 102.2 ml/min; Est GFR (African American) 124.7; Est GFR (Non-African American) 107.6; Potassium 4.2 mmol/L (3.5-5.1)
[2019-11-12] MEDS ORDERED: TAMSULOSIN HCL 0.4 MG CAP PO SCH (09:00)
[2019-11-12] MEDS: ESCITALOPRAM OXALATE 10 MG TAB PO SCH (09:45)
[2019-11-12] MEDS: TOPIRAMATE XR PO SCH (09:45)
[2019-11-12] MEDS ORDERED: SODIUM CHLORIDE 0.9% 1000ML 1,000 ML IV SCH (12:15)
--- NOTE | 2019-11-12 13:35 | Hospitalist Progress Note ---
Date of Service November 12, 2019 Assessment & Plan (1) Left ureteral calculus: Left ureteral calculus Obstructive uropathy --CT ABD:There is a 6 mm obstructing calculus at the left vesicoureteral junction. This causes moderate left hydroureteronephrosis. No additional left renal calculi are identified on this contrast-enhanced examination. A small nonobstructing calculus is noted in the upper pole of the right kidney. There is heterogeneous enhancement of the left kidney, likely related to obstruction/hydronephrosis. Correlation with clinical findings and urinalysis will be required. There are numerous hepatic cysts. These have increased from the 2015 examination. --? 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 DVT Px: SCDs Code Status Full code Disposition Expect to discharge home when stable Admission and Anticipated Discharge Date Admission Date: November 11, 2019 Subjective Patient is seen and examined at bedside Reports left groin pain, associated with nausea and vomiting this morning Denies dysuria, hematuria Remains NPO for possible procedure Had migraine overnight which currently improved Denies any chest pain, shortness of breath, dizziness Offers no other complaints Review of Systems Review of Systems: All systems reviewed & are unremarkable except as noted in HPI & below Physical Exam Physical Exam: Physical Exam: Vitals signs as noted above General Appearance:Thin, no apparent distress Head: normocephalic, Atraumatic Eyes: normal inspection, EOMI Neck: supple, Trachea midline Respiratory/Chest: Normal breath sounds, CTA, No accessory muscle use Cardiovascular: S1, S2, No murmur Abdomen/GI:Soft, Mild left flank/groin tender, Bowel sounds present Extremities/Musculoskelatal:normal inspection, no edema Neurologic/Psych:AAOX3, grossly no focal neurological deficits Skin: normal color, warm Results & Data Results & Data ([facility]) Vital Signs (Past 12 Hours) Vital Signs Temp Pulse Resp BP Pulse Ox 11/12/19 07:26 36.6 C 85 18 109/72 100 Laboratory Results Short CBC 11/12/19 Range/Units 06:06 WBC 4.64 L (4.8-10.8) K/uL Hgb 10.3 L (12.0-16.0) g/dL Hct 32.7 L (37-47) % Plt Count 172 (130-400) K/uL BMP 11/12/19 06:06 Sodium 141 Potassium 4.2 Chloride 112 H Carbon Dioxide 24 BUN 8 Creatinine 0.70 Glucose 94 Calcium 8.7
--- NOTE | 2019-11-12 14:05 | Urology Progress Note ---
Date of Service November 12, 2019 Assessment & Plan (1) Left ureteral calculus: ANDREW has resolved. Patient is tolerating fluids. Patient is currently n.p.o. but has been tolerating diet yesterday. Will allow patient to eat at this point. Discussed different options. Patient is undergoing maximum expulsion therapy. We will plan to continue with this with Flomax, Toradol oral, and oral pain medications and increased hydration at home. Patient is to monitor for fevers. Should be able to go home to continue expulsion therapy on her own. Okay to start diet. Encourage patient to keep active. We will plan for follow-up likely via phone call in the next 1 to 2 weeks to assess if she has passed a stone versus the need for intervention to destroy/remove the stone. Subjective Patient admitted with stone and discomfort. Patient is afebrile. Has been undergoing maximum expulsion therapy with oral medications, IV medications, IV fluids, and oral intake. Is doing better without considerable increase in pain or major issues. Has not developed severe vomiting or other issues. Has not experienced fever or chills. Has been tolerating oral medications. Is tolerating fluids. Has noticed some frequency and urgency. Has not had severe pain in the back and flank. Does have occasional burning and irritation. No severe episodes or major changes. Patient does not believe the passed a stone. Has not passed a large amount of blood or debris that may be the stone. Review of Systems Review of Systems: All systems reviewed & are unremarkable except as noted in HPI & below Physical Exam Physical Exam: General: Alert in no acute distress. HEENT: Normocephalic Atraumatic. Inspection normal. Cranial Nerves 2-12 Grossly intact. Normal inspection of face. Normal inspection of neck. Psychologic: Normal affect. Respiratory: Nonlabored. No use of accessory muscles. No tachypnea or dyspnea. Cardiovascular: No tachycardia Skin: [place] and Dry. No rashes or visible lesions. Extremities/Lymphatics: No edema Abdomen: Soft Non-distended. No rebound or guarding. Results & Data Vital Signs (Past 12 Hours) Vital Signs Temp Pulse Resp BP Pulse Ox 11/12/19 07:26 36.6 C 85 18 109/72 100 PG Care Time/CCT Total # of Minutes Spent Total Time Spent with Patient: Total time spent is greater than 50% in coordination of care (as documented) at patient's floor/unit and/or counseling patient: Coding Level of Care Code 21405 Subseq Hosp Care Lvl 3 Diagnoses Left ureteral calculus N20.1
--- NOTE | 2019-11-12 14:59 | Discharge Summary ---
Date of Service November 12, 2019 Admission HPI Per Admitting Provider History obtained from patient and records. Medical history significant for urolithiasis, migraine, Martha syndrome as per records, history liver cysts, chronic anemia (baseline hemoglobin of 11). 2 weeks history of achy abdominal pain initially epigastric later going to the left side. Watery loose stools without nausea and emesis. No fever, no chills. No known sick contacts, recent travel, new medications. No hematuria. Poor appetite. No chest pain, no S OB. Patient seen at PCP's office last week. Epigastric discomfort attributed to gastroenteritis. 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 Urinalysis was negative for infection. Pepcid Rx without any effect as per patient. Patient consulted ER for worsening symptoms. Some blood noted on wiping her "raw" bottom on one occasion as per patient. Patient given IV Ceftriaxone at the ER. 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 Admission Exam Per Admitting Provider Physical Exam Physical Exam: GENERAL: Slightly anxious, slightly uncomfortable, no respiratory distress SKIN: Pallor , warm HEENT: Pale palpebral conjunctivae, no ptosis, dry buccal mucosa NECK : Supple, no tenderness CHEST : CTA, no tenderness HEART : RRR, systolic murmur BACK : Minimal left flank tenderness ABDOMEN: Some distention, nontender EXTREMITIES : No LE swelling/tenderness, no other conspicuous deformities noted NEUROLOGIC : Coherent, no facial asymmetry, no other gross focality Principal Diagnosis Left ureteral calculus Obstructive uropathy Acute Kidney Injury Discharge Data Allergies Allergy/AdvReac Type Severity Reaction Status Date / Time azithromycin Allergy Intermediate Rash Verified 11/10/19 22:19 prednisone Allergy Intermediate Rash Verified 11/10/19 22:19 Consultations 11/11/19 02:04 ED Decision to Admit Stat 11/11/19 06:35 Consult Urology Routine Procedures Performed CT ABD:There is a 6 mm obstructing calculus at the left vesicoureteral junction. This causes moderate left hydroureteronephrosis. No additional left renal calculi are identified on this contrast-enhanced examination. A small nonobstructing calculus is noted in the upper pole of the right kidney. There is heterogeneous enhancement of the left kidney, likely related to obstruction/hydronephrosis. Correlation with clinical findings and urinalysis will be required. There are numerous hepatic cysts. These have increased from the 2015 examination. Ordered Studies 11/10/19 21:59 CT abd pelvis oral and IV con Urgent Hospital Course (1) Left ureteral calculus: Left ureteral calculus Obstructive uropathy --CT ABD:There is a 6 mm obstructing calculus at the left vesicoureteral junction. This causes moderate left hydroureteronephrosis. No additional left renal calculi are identified on this contrast-enhanced examination. A small nonobstructing calculus is noted in the upper pole of the right kidney. There is heterogeneous enhancement of the left kidney, likely related to obstruction/hydronephrosis. Correlation with clinical findings and urinalysis will be required. There are numerous hepatic cysts. These have increased from the 2015 examination. --? renal stones secondary to Topomax --Continue IV fluids, pain control, Flomax Continue to strain urine Appreciate urology input Continue current management May need ureteral stent if can not pass the stone UTI ruled out Urine culture negative Received IV Rocephin Acute Kidney Injury Secondary to above Resolved Avoid nephrotoxic agents as able Cr back to baseline Diarrhea Check stool studies if re-occurs H/O Migraine Will discontinue Topiramate upon discharge Received Sumatriptan Chronic anemia Hb drop dilutional due to IV fluids Monitor CBC Prediabetes HbA1C:5.8 Color Maker DVT Px: SCDs Code Status Full code Disposition Expect to discharge home when stable Total Time Total Time Spent Total Time Spent (In Minutes): 39 minutes Total Time Includes: Examination of the Patient, Discharge Planning, Medication Reconciliation, Communication With Other Providers and Other Discharge Plan Discharge Items Patient Disposition: Home - Self-Care Reason For Visit: COMP UTI Discharge Diagnosis: Left ureteral calculus Acute kidney injury Activity: Per Instructions section Exercise/Sports: Gradually increase as tolerated Non-emergency contact: Primary Care Provider and Urologist Call non-emergency contact if: you have any medication questions, your symptoms worsen, your pain is not controlled, your pain is worsening, your pain is unusual for you, your pain is concerning for you and you have a fever Follow-up/Referrals: Lida Aguilar, [Primary Care Provider] - Diet: Regular Addtl Attending Provider Instructions: Follow-up with your primary care physician Dr. Aguilar in 1 week as advised Follow-up with your urologist Dr. Ellis Zuniga in 1 to 2 weeks as advised Increase oral fluid intake as advised Strain your urine as advised Your topiramate is discontinued given risk for formation of kidney stones. Seek immediate medical attention if your symptoms reoccur or worsen Pending Studies at Discharge: No Stand-Alone Forms: [facility], Opioid Pain Management Medications and DC Order Prescriptions: New tramadol 50 mg Tablet 50 mg PO Q6H PRN (Reason: pain) Qty: 10 RF: 0 tamsulosin 0.4 mg Capsule 0.4 mg PO QAM 30 Days Qty: 30 RF: 0 riboflavin (vitamin B2) 400 mg tablet 400 mg PO DAILY Qty: 30 RF: 0 Continued valacyclovir 1 gram tablet 2,000 mg PO Q12H PRN (Reason: Cold Sore(s)) RF: 0 rizatriptan 10 mg tablet,disintegrating 10 mg PO DIRECTED PRN (Reason: Headache) RF: 0 escitalopram oxalate 10 mg tablet 10 mg PO DAILY RF: 0 Ajovy Syringe 225 mg/1.5 mL syringe 225 mg SUBCUT MO RF: 0 famotidine 40 mg Tablet 40 mg PO HS RF: 0 Discontinued Trokendi XR 50 mg capsule,extended release 24hr 50 mg PO DAILY RF: 0 Discharge Orders: Discharge Order (Routine); Ordered 11/12/19 Ordered By: Garth Rogers/Other Patient Handouts: Kidney Stones, Kidney Stones Expectant Therapy Admission Data Admit Date/Time: 11/11/19 02:55 Attending Provider: Garth Brink Admit Provider: Roque Mtz Primary Care Provider: Lida Aguilar Other Providers: Roque Mtz ; Reza Carpio ; Timmy Ackerman ; Jose Sánchez I. ; Marcel Garner ; Katina Corral ; Xiomara Madrigal ; Ellis Zuniga ; Gaye Arteaga Melissa A. ; William Mcneil ; Bella Vega Other Interventions: Discharge Summary Assessment (RN) Last Done: 11/12/19 16:04
== END 2019-11-12 17:16 | disposition home or self-care (01) | DRG 694 ==
LOC: ED 20:55 → 3N 11-11 02:55